=== PATIENT | female | born 1985 | race Caucasian/White ===

== ENCOUNTER 2017-12-25 15:00 | Inpatient (IN) | payer OTHER ==
[~2017-12-25] VITALS: Ht 157.5 cm; Wt 3.2 kg
[2018-01-08] MEDS ORDERED: PRENATAL TABLE1 EAC3 PO (20:24)
[2018-01-08] MEDS ORDERED: SYNTHROID75 MCG PO (20:24)
== END 2018-01-14 12:52 | DRG 765 ==
LOC: O/R 01-08 19:53 → LDR 01-08 19:53 → O/R 01-09 09:18 → LDR 01-09 16:53 → OB/GYN 01-10 21:18
PROVIDERS: Obstetrics & Gynecology
PROC: 4A033R1 Measurement of Arterial Saturation, Peripheral, Percutaneous Approach (ICD-10-PCS; 2018-01-09)
PROC: 4A1HXCZ Monitoring of Products of Conception, Cardiac Rate, External Approach (ICD-10-PCS; 2018-01-09)
PROC: BY4FZZZ Ultrasonography of Third Trimester, Single Fetus (ICD-10-PCS; 2018-01-09)
PROC: 4A033R1 Measurement of Arterial Saturation, Peripheral, Percutaneous Approach (ICD-10-PCS; 2018-01-09)
PROC: 4A1HXCZ Monitoring of Products of Conception, Cardiac Rate, External Approach (ICD-10-PCS; 2018-01-09)
PROC: 10D00Z1 Extraction of Products of Conception, Low, Open Approach (ICD-10-PCS; principal; 2018-01-09 11:00)
DX: O13.4 Gestational [pregnancy-induced] hypertension without significant proteinuria, complicating childbirth (principal); O99.12 Other diseases of the blood and blood-forming organs and certain disorders involving the immune mechanism complicating childbirth; O14.14 Severe pre-eclampsia complicating childbirth; Z3A.39 39 weeks gestation of pregnancy; Z37.0 Single live birth